=== PATIENT | female | born 2000 | race Caucasian/White ===

== ENCOUNTER 2025-01-12 11:23 | Emergency (ER) | payer OTHER, SELFPAY ==
[2025-01-12 11:25] VITALS: BP 123/70
[2025-01-12] MEDS: LEVAQUIN 750 MG PO (12:07)
[2025-01-12] MEDS: FLAGYL 500 MG PO (12:07)
[2025-01-12] MEDS: ADACEL 0.5 ML IM (12:08)
--- NOTE | 2025-01-12 12:11 | ED.SKININJ ---
HPI-Injury
General
Chief Complaint: Bite
Source: patient
Exam Limitations: none
Time Seen by Provider: 01/12/25 11:33
Nursing documentation reviewed up to this point in time: agreed with
History of Present Illness-Injury
Initial Injury comments:
25-year-old female presents for evaluation after dog bite. Patient was dog sitting and was bitten by a friend's dog. Bite on the right calf. Dog is up-to-date on vaccinations. Patient unsure of her last tetanus shot.
Past History
Past History
ED Past Medical History: None
ED Past Surgical History: None
Social History
Tobacco: Non-smoker
Employment: Student
Review of Systems
Review of Systems
All Other Systems: ROS reviewed and negative except as documented in HPI and ROS
Skin: Reports other (Dog bite)
Phy Exam
Physical Exam
Physical Exam:
General: Well appearing and non-toxic
HEENT: protecting airway
Neck: appears supple
CV: No evidence of cyanosis
Resp: No accessory muscle use
Abd: Non-distended
Extremities: No deformities
Neuro: Alert
Psych: Normal affect
Skin: Patient has 2 small puncture wounds on the right upper calf just lateral and inferior to the knee; she has bruising around the puncture wounds
Scores
Heart Failure Risk
Heart Failure Risk Score: Not Applicable
Heart Score for Chest Pain Patients
STEMI patient?: Not applicable
Withdrawal Assessment of Alcohol
Withdrawal Assessment Completed?: Not applicable
Course
Orders/Labs/Results
Orders:
Orders
01/12/25 11:59
LevoFLOXacin [Levaquin] 750 mg PO NOW STA
MetroNIDAZOLE [Flagyl] 500 mg PO NOW STA
Tetanus/Diphth/Acelpertussis [Adacel] 0.5 ml IM .ONCE ONE
Vital Signs
Initial and Last Documented VS:
Initial Vital Signs
Temp Pulse Resp BP Pulse Ox
36.6 C 87 16 123/70 98
01/12/25 11:25 01/12/25 11:01/12/25 11:01/12/25 11:01/12/25 11:25
Last Documented Vital Signs
Temp Pulse Resp BP Pulse Ox
36.6 C 87 16 123/70 98
01/12/25 11:25 01/12/25 11:25 01/12/25 11:25 01/12/25 11:01/12/25 11:25
MDM/Problems Addressed
Differential Diagnosis Includes:
Dog bite
MDM/Problems Addressed:
25-year-old female presents with a dog bite to the right calf. Dog is up-to-date on vaccinations and healthy�no indication for rabies prophylaxis. Patient unsure of her own tetanus status�will update her tetanus shot. Wound was vigorously cleaned
at bedside by me, antibiotic ointment and dressing applied. Started on prophylactic antibiotics�unfortunately patient has multiple allergies including to penicillin, sulfa, doxycycline, cephalosporins. Will treat with Levaquin and Flagyl. Stable
for discharge�spoke about return precautions and all questions answered.
Chronic conditions affecting care:
Multiple allergies affected antibiotic choice
*Pulse Oximetry
Patient hypoxic: no
*Critical Care Note
Total Time (30-74mins, 75-104mins- exclusive of procedures): Not Applicable
Data Reviewed
Source: patient and family (mother)
ED Attending Note
-
Portions of this chart may have been created with voice recognition software.� Occasional wrong word or��sound alike� substitutions may have occurred due to the inherent limitations of voice recognition software.
Discharge Plan
Departure
Patient Disposition: Home (Routine Discharge)
Date of Disposition: 01/12/25
Time of Disposition: 11:59
Patient with high blood pressure during this ER visit?: No
Discharge Problem:
Dog bite
Instructions: Animal Bites (DC)
Prescriptions:
New
levofloxacin 750 mg tablet
750 mg PO DAILY Qty: 5 0RF
metronidazole 500 mg tablet
500 mg PO TID 5 Days Qty: 15 0RF
No Action
cephalexin 250 MG/5 ML suspension for reconstitution
500 mg PO QID Qty: 400 0RF
hydroxyzine HCl 25 MG tablet
25 mg PO QIDPRN PRN (Reason: hives/itching) Qty: 15 0RF
Referrals:
Evelin Norris MD [Family Provider] - As needed
Activity Restrictions/Additional Instructions:
Thank you for visiting the Emergency Department at [facility].
1. Please schedule a follow up appointment as directed. Call first thing tomorrow morning to make an appointment.
2. If indicated, please take your medications as instructed and indicated on discharge paperwork.
3. If any of your symptoms do not improve, or persist, or become more severe within 6-12 hours, please return to the emergency department for further care.
4. Please return to the emergency department if you develop a headache, neck pain/stiffness, fever greater than 100.4F, chest pain, shortness of breath, persistent nausea, vomiting, slurred speech, difficulty walking, numbness/tingling, weakness,
signs of infection or any other symptoms that are worrisome to you.
Please call [phone] if you have any questions.
Interventions
Interventions:
*Risk Screen - Suicide Last Done: 01/12/25 11:25
*Neglect/Abuse Screening Last Done: 01/12/25 11:25
ED-Skin Assessment Last Done: 01/12/25 11:38
Discharge Date and Time
Print Language: UKRAINIAN
== END 2025-01-12 12:21 | disposition home or self-care (01) ==
LOC: EMR 11:23
PROVIDERS: EMERGENCY PHYSICIAN Emergency Medicine; FAMILY PHYSICIAN Family Medicine
DX: S81.831A Puncture wound without foreign body, right lower leg, initial encounter (principal); W54.0XXA Bitten by dog, initial encounter; Z23 Encounter for immunization; S81.851A Open bite, right lower leg, initial encounter
CPT/HCPCS: 90471; 99282; 90715